=== PATIENT | female | born 1975 | race African-American/Black ===

== ENCOUNTER 2024-05-31 06:22 | Inpatient (IN) | payer OTHER ==
[2024-05-26 13:26] VITALS: BMI 31.3
[2024-05-31] MEDS: GABAPENTIN 300 MG CAPSULE PO ONE (06:50)
[2024-05-31] MEDS ORDERED: ACETAMINOPHEN INJECTION 100 ML ONE (07:49)
[2024-05-31] MEDS ORDERED: ONDANSETRON 4 MG/2 ML VIAL ONE ×2 (07:58→09:50)
[2024-05-31] MEDS ORDERED: DEXAMETHASONE SOD PHOSPHATE 4 MG/1 ML VIAL ONE (07:58)
[2024-05-31] MEDS ORDERED: PROPOFOL 40 ML ONE (07:58)
[2024-05-31] MEDS ORDERED: ROCURONIUM BROMIDE 50 MG/5 ML SYRINGE ONE ×2 (07:58→09:17)
[2024-05-31] MEDS ORDERED: LIDOCAINE HCL/PF 2% SDV 5ML VIAL ONE (07:58)
[2024-05-31] MEDS ORDERED: SUCCINYLCHOLINE CHLORIDE 200 MG/10 ML SYRINGE ONE (08:01)
[2024-05-31] MEDS ORDERED: ONDANSETRON 4 MG/2 ML VIAL IVPUSH PRN ×2 (08:16→08:17)
[2024-05-31] MEDS ORDERED: oxyCODONE HCL 5 MG TABLET PO PRN (08:16)
[2024-05-31] MEDS ORDERED: MIDAZOLAM HCL 2 MG/2 ML SINGLE DOSE VIAL ONE (08:21)
[2024-05-31] MEDS ORDERED: HYDROmorphone *PCA* 10MG/50ML DISP.SYRIN PCA SCH (08:30)
[2024-05-31] MEDS: ceFAZolin SODIUM 1 GM VIAL IVPB ONE (08:52)
[2024-05-31] MEDS ORDERED: HYDROmorphone HCl 2 MG/ML VIAL ONE (09:06)
[2024-05-31] MEDS ORDERED: SUGAMMADEX SODIUM 200 MG/2 ML VIAL ONE ×2 (09:50→10:22)
[2024-05-31] MEDS ORDERED: BISACODYL 5 MG TABLET.DR (FP) PO PRN (11:05)
[2024-05-31] MEDS: LACTATED RINGERS SOLUTION 1,000 ML IV SCH (11:29)
[2024-05-31] MEDS: IBUPROFEN 800 MG/8 ML IJ IVPB SCH (14:08)
[2024-05-31] MEDS: CEFAZOLIN 2 GM in DEXTROSE 5%-WATER - 100 ML IVPB ONE (15:19)
[2024-05-31] MEDS: ACETAMINOPHEN 500 MG TABLET (FP) PO ONE (15:20)
[2024-05-31] MEDS: CEFAZOLIN 1 GM in DEXTROSE 5%-WATER - 50 ML IVPB SCH ×2 (16:30→17:18)
[2024-05-31] MEDS ORDERED: IBUPROFEN 800 MG/8 ML IJ IVPB SCH (18:00)
[2024-05-31] MEDS: ACETAMINOPHEN 1000 MG/100 ML BAG IVPB SCH (18:04)
[2024-05-31] MEDS: DOCUSATE SODIUM 100 MG CAPSULE (FP) PO PRN (19:26)
[2024-05-31] MEDS: SIMETHICONE 80 MG TAB.CHEW (FP) PO PRN (19:26)
[2024-06-01 04:12] VITALS: RESP 18
[2024-06-01 07:54] LABS: HEMATOCRIT 34.8 % (34.1-44.9); HEMOGLOBIN 10.8 g/dL (11.2-15.7); MEAN CELL VOLUME 84.5 fl (79.4-94.8); MEAN PLT VOLUME 10.2 fl (9.4-12.3); PLATELET COUNT 297 x10^3/uL (182-369); RDW 17.5 % (12.2-17.1)
[2024-06-01 08:45] VITALS: BP 104/63; PULSE 71; TEMP 98.8
[2024-06-01] MEDS: MULTIVITAMINS (DAILY MVI) TABLET (FP) PO SCH (09:07)
[2024-06-01] MEDS: FERROUS SO4 325 MG TABLET (FP) PO SCH (09:07)
[2024-06-01] MEDS ORDERED: oxyCODONE HCL 5 MG TABLET PO PRN ×2 (10:00)
[2024-06-01] MEDS ORDERED: ACETAMINOPHEN 325 MG TABLET (FP) PO PRN (11:30)
[2024-06-01] MEDS: IBUPROFEN 600 MG TABLET (FP) PO PRN (16:50)
== END 2024-06-01 17:36 | disposition home or self-care (01) | DRG 519 ==
LOC: J2C 06:22 → J3W 13:17
PROVIDERS: ADMIT Specialist; ATTEND Specialist
PROC: 0UT70ZZ Resection of Bilateral Fallopian Tubes, Open Approach (ICD-10-PCS; 2024-05-31)
PROC: 0UT10ZZ Resection of Left Ovary, Open Approach (ICD-10-PCS; 2024-05-31)
PROC: 0UB60ZZ Excision of Left Fallopian Tube, Open Approach (ICD-10-PCS; 2024-05-31)
PROC: 0UT90ZZ Resection of Uterus, Open Approach (ICD-10-PCS; principal; 2024-05-31 08:00)
DX: D25.9 Leiomyoma of uterus, unspecified (principal); R10.2 Pelvic and perineal pain; N93.8 Other specified abnormal uterine and vaginal bleeding; D50.9 Iron deficiency anemia, unspecified; N83.202 Unspecified ovarian cyst, left side
CPT/HCPCS: 36415; 80053; 81025; 85025; 85027; 85610; 86850; 86900; 86901; 88307-TC; 94010; 94760; J0131